=== PATIENT | male | born 2000 | race African-American/Black ===

== ENCOUNTER 2024-07-26 09:26 | Emergency (ER) | payer SELFPAY ==
[~2024-07-26] VITALS: Ht 188 cm; Wt 113.4 kg
[2024-07-26 09:36] VITALS: TEMP 36.7; O2SAT 100
[2024-07-26 09:39] VITALS: PULSE 66; O2SAT 98
[2024-07-26] MEDS: KETOROLAC 30MG/ML VIAL IM ONE (11:34)
[2024-07-26] MEDS: CYCLOBENZAPRINE 10MG TABLET PO ONE (11:34)
[2024-07-26 11:35] VITALS: BP 114/64; RESP 14
[2024-07-26] MEDS: LIDOCAINE 5% PATCH TOP SCH (11:35)
[2024-07-26] MEDS ORDERED: KETO10TA2 MT (12:50)
[2024-07-26] MEDS ORDERED: LIDO700A15 TP (12:50)
[2024-07-26] MEDS ORDERED: CYCL10TA21 MT (12:50)
== END 2024-07-26 13:04 | disposition home or self-care (01) ==
LOC: ER 09:26
DX: M51.372 Other intervertebral disc degeneration, lumbosacral region with discogenic back pain and lower extremity pain (principal); M43.16 Spondylolisthesis, lumbar region; M47.816 Spondylosis without myelopathy or radiculopathy, lumbar region; M51.369 Other intervertebral disc degeneration, lumbar region without mention of lumbar back pain or lower extremity pain
CPT/HCPCS: 99283; 72100; 96372; J1885